=== PATIENT | female | born 1990 | race Caucasian/White ===

== ENCOUNTER 2021-01-02 17:58 | Outpatient (CLI) | payer OTHER | END 2021-01-03 11:07 | disposition home or self-care (01) | LOC: GENOP 17:58 | PROVIDERS: Obstetrics & Gynecology | DX: O99.891 Other specified diseases and conditions complicating pregnancy (principal); N13.30 Unspecified hydronephrosis; Z3A.28 28 weeks gestation of pregnancy | CPT/HCPCS: 80307; 81001; 96360; 96361; 96372; 96374; 96376; J0595; J1200; J2300; J3410; J7120 ==

== ENCOUNTER 2021-05-05 13:34 | Emergency (ER) | payer OTHER | END 2021-05-05 15:09 | disposition left against medical advice (07) | LOC: ER1 13:34 | DX: R19.7 Diarrhea, unspecified (principal); R50.9 Fever, unspecified; Z88.0 Allergy status to penicillin; Z88.1 Allergy status to other antibiotic agents | CPT/HCPCS: 99283 ==

== ENCOUNTER 2022-01-22 05:46 | Emergency (ER) | payer OTHER ==
[2022-01-22] MEDS ORDERED: ZOFRAN 4 MG TAB4 MG PO (07:56)
[2022-01-22] MEDS ORDERED: IBUPROFEN600 MG PO (07:56)
== END 2022-01-22 08:02 | disposition home or self-care (01) ==
LOC: ER1 05:46
DX: G43.909 Migraine, unspecified, not intractable, without status migrainosus (principal); R11.2 Nausea with vomiting, unspecified
CPT/HCPCS: 96374; 96375; 99283; J1200; J1885; J2270; J2405; J2765

== ENCOUNTER 2022-01-31 06:19 | Emergency (ER) | payer OTHER ==
[~2022-01-31 06:19] MED LIST: IBUPROFEN600 MG PO; ZOFRAN 4 MG TAB4 MG PO
[2022-01-31 08:09] LABS: HEMOGLOBIN 15.3 gm/dl (12.3-15.3); RED BLOOD COUNT 4.95 M/UL (4.00-5.10); WHITE BLOOD COUNT 10.3 K/UL (4.5-11.0)
[2022-01-31 08:34] LABS: BUN/CREATININE RATIO 31 (0-10)
== END 2022-01-31 09:39 | disposition home or self-care (01) ==
LOC: ER1 06:19
PROVIDERS: Physician Assistant
DX: G43.909 Migraine, unspecified, not intractable, without status migrainosus (principal); Z88.0 Allergy status to penicillin
CPT/HCPCS: 80053; 85025; 96372; 96374; 96375; 99283; J1200; J1885; J2765; J7030